=== PATIENT | female | born 1960 | race Caucasian/White ===

== ENCOUNTER 2019-08-25 10:25 | Outpatient (CLI) | payer MEDICAID, SELFPAY ==
[2019-08-25 11:22] VITALS: BMI 33.3
--- NOTE | 2019-08-25 11:28 | ECG_ITS ---
NAME OF STUDY: EXERCISE SESTAMIBI STRESS TEST INDICATION: PRECORDIAL PAIN, EXERCISE DATA: The patient was exercised by John protocol. Baseline heart rate was 105 beats per minute. Baseline blood pressure was 108/69 millimeters of mercury. Target heart rate was 161 beats per minute. Maximum heart rate achieved was 135, which was 83 % of the target heart rate. Maximum blood pressure was 108/69 millimeters of mercury. Total exercise time was 4 minutes 45 seconds. Maximum METs achieved was 4.6, maximum VO2 was 16.1. The reason for ending the test was maximum effort achieved. The patient complained of severe shortness of breath with wheezing during the stress test, exercise was stopped. ELECTROCARDIOGRAM: BASELINE: Sinus tachycardia, normal axis, no significant ST-T changes at the baseline noted. EXERCISE: At the peak exercise level, No significant ST-T changes suggestive of ischemia noted. RECOVERY: During the recovery period, heart rate dropped appropriately. No significant ST-T changes in the recovery suggestive of ischemia noted. CONCLUSION: 1. Exercise capacity poor. 2. Heart rate response was appropriate. 3. Blood pressure response was [blunt 4. Symptoms not suggestive of ischemia. 5. Electrocardiogram portion of the stress test was not suggestive of ischemia. 6. Nuclear scan will be documented separately. Please note that due to poor exercise capacity and under achievement of METs specificity and sensitivity of the EKG portion of the stress test will be low Electronically Signed On 08-26-2019 19:01:59 ENTRY LEVEL CHEMIST by Cindy Perez M.D. [email or web address]
[2019-08-25 12:49] VITALS: BP 108/69; PULSE 98
--- NOTE | 2019-08-25 12:53 | PC.NURSE ---
STRESS TEST NOTE PATIENT UNABLE TO REACH HER TARGET HEART RATE DUE TO SEVERE SOB WITH AUDIBLE WHEEZING. THE TREADMILL WAS STOPPED AT 3 MINUTES. HER ROOM AIR SATS WERE 95-98%. THE PATIENT REFUSED TO DO THE CHEMICAL STRESS TEST. SHE WAS DC'D HOME FROM [facility] AND TOLD TO FOLLOW UP WITH RUSSELL GUARDADO NP. THE PATIENT VERBALIZED HER UNDERSTANDING AND WISHES TO GO HOME. DR WALDRON WAS NOTIFIED ABOUT THE DISCONTINUATION OF THE STRESS TEST AND TOLD THAT HE WOULD HAVE EKG'S TO LOOK AT IN [facility] AND THE REST NUCLEAR IMAGES TO READ WELL.
== END 2019-08-25 10:26 | disposition home or self-care (01) ==
LOC: CDL 10:28
PROVIDERS: Family Provider Nurse Practitioner Family; Visit Provider Nurse Practitioner Family
DX: R07.2 Precordial pain (principal); R00.0 Tachycardia, unspecified
CPT/HCPCS: 93017

== ENCOUNTER 2020-09-02 14:24 | Outpatient (CLI) | payer MEDICAID, SELFPAY ==
--- NOTE | 2020-09-02 14:35 | XR_ITS ---
WS: [id number] XR cervical spine 3V* [id number] REASON FOR EXAM: OSTEOPHYTE VERTEBRAE FINDINGS: Normal alignment of the cervical vertebrae. Normal odontoid. Normal atlantoaxial articulation. Mild narrowing of the C5-C6 disc space. Small anterior osteophytes C3-C6. Normal facet joint alignment with mild degenerative changes C3-C6. XR/XR cervical spine 3V* [id number] IMPRESSION: Mild changes of degenerative spondylosis as above. C5-C6 is the most significan t level.
== END 2020-09-02 14:25 | disposition home or self-care (01) ==
PROVIDERS: PCP Nurse Practitioner Family; Visit Provider Anesthesiology Pain Medicine
DX: M25.78 Osteophyte, vertebrae (principal)
CPT/HCPCS: 72040

== ENCOUNTER → 2020-10-29 11:20 | Outpatient (BNVA) | payer MEDICAID, SELFPAY | PROVIDERS: PCP Nurse Practitioner Family; Visit Provider Nurse Practitioner Family | DX: R73.09 Other abnormal glucose (principal); E78.5 Hyperlipidemia, unspecified; I10 Essential (primary) hypertension; E03.9 Hypothyroidism, unspecified; F51.01 Primary insomnia | CPT/HCPCS: 80053; 80061; 81003; 83036; 84443; 85025 ==

== ENCOUNTER → 2021-03-25 13:01 | Outpatient (BNVA) | payer MEDICAID, SELFPAY | PROVIDERS: PCP Nurse Practitioner Family; Visit Provider Nurse Practitioner Family | DX: I10 Essential (primary) hypertension (principal); E03.9 Hypothyroidism, unspecified | CPT/HCPCS: 81003; 82607; 83550; 83921; 84443; 87086 ==

== ENCOUNTER → 2021-08-05 13:43 | Outpatient (BNVA) | payer MEDICAID, SELFPAY | PROVIDERS: PCP Nurse Practitioner Family; Visit Provider Family Medicine | DX: K21.9 Gastro-esophageal reflux disease without esophagitis (principal); E03.9 Hypothyroidism, unspecified; E78.5 Hyperlipidemia, unspecified | CPT/HCPCS: 80061; 84443 ==

== ENCOUNTER → 2022-10-13 13:51 | Outpatient (BNVA) | payer MEDICAID, SELFPAY | PROVIDERS: PCP Nurse Practitioner Family; Visit Provider Surgery | DX: K59.00 Constipation, unspecified (principal); Z86.010 Personal history of colon polyps; K21.9 Gastro-esophageal reflux disease without esophagitis; K92.1 Melena; R10.31 Right lower quadrant pain | CPT/HCPCS: 99204 ==

== ENCOUNTER 2022-12-28 11:30 | Outpatient (CLI) | payer OTHER, SELFPAY ==
--- NOTE | 2022-12-28 11:39 | XR_ITS ---
WS: [email or web address] XR chest 2V* [id number] REASON FOR EXAM: COPD FINDINGS: Normal heart, thoracic aorta, and mediastinum. Calcified granulomatous disease in both hemithoraces. There is moderate flattening of the hemidiaphragms and moderate expansion of the anterior clear space . Multiple small lucencies in the mid and upper lung zavala. No lung opacities and no pleural abnormality. Bony thorax is intact with minimal change of degenerative spondylosis in the mid and lower thoracic s pine. XR/XR chest 2V* [id number] IMPRESSION: Moderate hyperexpansion of the lungs and pulmonary parenchymal pattern suggesti ve of central lobar emphysema.
--- NOTE | 2022-12-28 11:39 | XR_ITS ---
WS: [email or web address] XR lumbar spine 2-3V* [id number] REASON FOR EXAM: BACK PAIN FINDINGS: Mild exaggeration of the normal lordosis. No significant vertebral body compression deformity. Sclerosis in the vertebral body underlying the s uperior endplate of L1 is felt to be related to distal protrusion. Mild narrowing of the L1-L2 disc space with moderate anterior osteophytosis. Moderate narrowing of the L2-L3 disc space with vacuum phenomena. Moderate anterior osteophytosis. There is 2 to 3 mm of anterolisthesis of L3 in relation to L2 and L4 in relation to L3. There is 5 mm of anterolisthesis of L5 in relation to L4. No spondylolysis identified. XR/XR lumbar spine 2-3V* [id number] IMPRESSION: Degenerative spondylosis of the lumbar spine as above. Progression of degenerat consuelo disc disease at L2-L3 compared to 08/23/2013.
[2022-12-28 12:40] VITALS: PULSE 117; RESP 20; O2SAT 97
[2022-12-28] MEDS: albuterol 2.5 mg/3 mL Neb INHALATION (12:40)
[2022-12-28 12:45] VITALS: PULSE 112
== END 2022-12-28 11:31 | disposition home or self-care (01) ==
PROVIDERS: PCP Nurse Practitioner Family; Visit Provider Dermatology
DX: J44.9 Chronic obstructive pulmonary disease, unspecified (principal); M47.896 Other spondylosis, lumbar region
CPT/HCPCS: 71046; 72100; 94060; J7613

== ENCOUNTER 2023-01-28 12:24 | Outpatient (CLI) | payer MEDICAID, SELFPAY ==
--- NOTE | 2023-01-28 13:00 | MR_ITS ---
WS: [email or web address] MRI BRAIN WITH AND WITHOUT CONTRAST HISTORY: R25.1 - Tremor, unspecified COMPARISON: None available. TECHNIQUE: Multiplanar imaging performed through the brain with MultiHance 19 ml's IV. Diffusion weighted images are normal. There is significant white matter abnormality. There is conflue nt increased T2 and FLAIR signal throughout the white matter surrounding the ventricles and extending along the corticospinal tracts. There is also signal abnormality within the thalami. Findings are bi lateral and symmetric and extend to involve the ambrose. No associated hemosiderin. No prior infarcts. Ventricles and extra-axial spaces are normal. Clivus and pituitary gland are normal. Postcontrast images are negative for masses or vascular malformations. Dural venous sinuses are normal. Paranasal sinuses: Well aerated with no significant disease. Mastoid air cells: Normal. Calvarium and scalp: Normal. IMPRESSION: 1. Markedly abnormal appearance to the brain including the white matter, thalami and ambrose. No associ ated hemorrhage. Confluent signal abnormality. Differential is broad and includes chronic hypertensiv e encephalopathy, demyelination, leukoencephalopathy, CADASIL, ADEM, vasculitis and leukodystrophy. T his is a very nonspecific appearance but abnormal. 2. No associated hemorrhage and no enhancement.
--- NOTE | 2023-01-28 13:45 | MR_ITS ---
WS: [email or web address] MRI CERVICAL SPINE pre and post contrast. HISTORY: R25.1 - Tremor, unspecified COMPARISON: None available. Technique: Multiplanar, multisequence noncontrast imaging of the cervical spine. Postcontrast imaging , 19 mL IV. Quality is compromised by motion artifact. Normal cervical alignment with no compression fracture or significant disc space narrowing. Signal changes within the cord would be difficult to visualize with this amount of motion. There is n o cord atrophy or enlargement identified. Craniocervical junction, C1 and C2 relationship, odontoid process and soft tissues are normal. C2-C3: Normal. C3-C4: Small central disc protrusion with no stenosis. C4-C5: Normal. C5-C6: Central moderate size disc protrusion effaces the CSF and contacts the ventral cord without di splacement. Mild central and bilateral foraminal narrowing. C6-C7: Poorly visualized disc level. Suspect mild disc bulging and central stenosis. C7-T1: Limited evaluation but no stenosis identified. Paravertebral soft tissues are negative. No enhancement is identified but the postcontrast imaging is very limited by the motion artifact. There is significant motion artifact on the postcontrast T1 seq uence. IMPRESSION: 1. Study is compromised by significant motion artifact during this examination. 2. Central disc protrusion at C5-6 causing mild contact on the ventral cord. Mild central and bilater al foraminal stenosis. 3. No areas of abnormal enhancement and no signal abnormality identified. Quality is compromised by m otion.
[2023-01-28] MEDS: gadobenate dimeglumine 20 mL vial IV (14:14)
== END 2023-01-28 12:25 | disposition home or self-care (01) ==
PROVIDERS: PCP Nurse Practitioner Family; Visit Provider Specialist
DX: R25.1 Tremor, unspecified (principal); R29.2 Abnormal reflex; M50.222 Other cervical disc displacement at C5-C6 level; M48.02 Spinal stenosis, cervical region; R90.89 Other abnormal findings on diagnostic imaging of central nervous system
CPT/HCPCS: 70553; 72156; A9577

== ENCOUNTER → 2023-07-21 13:26 | Outpatient (BNVA) | payer MEDICAID, SELFPAY | PROVIDERS: PCP Nurse Practitioner Family; Visit Provider Psychiatry & Neurology Neurology | DX: G37.9 Demyelinating disease of central nervous system, unspecified (principal); R93.0 Abnormal findings on diagnostic imaging of skull and head, not elsewhere classified; R29.2 Abnormal reflex; M48.00 Spinal stenosis, site unspecified; G25.0 Essential tremor; J44.9 Chronic obstructive pulmonary disease, unspecified; E78.5 Hyperlipidemia, unspecified; F17.200 Nicotine dependence, unspecified, uncomplicated | CPT/HCPCS: 99212 ==